=== PATIENT | male | born 1990 | race Caucasian/White ===

== ENCOUNTER → 2021-03-25 09:19 | Outpatient (CLI) | payer MEDICAID, SELFPAY ==
--- NOTE | 2021-03-25 09:30 | RAD_ITS ---
STUDY: X-RAY - ESOPHAGUS (BARIUM SWALLOW) WITH FLUOROSCOPY REASON FOR EXAM: Male, 30 years old. Dysphagia, evaluate FOR ACHALASIA TECHNIQUE: 22 view(s) of the esophagus were obtained following swallowing of barium. FLUOROSCOPY TIME (if supplied): (34 seconds) minutes/seconds COMPARISON: None. FINDINGS: There is no demonstrated esophageal foreign body. There is no demonstrated stricture or mucosal abnormality. There is evidence of dilatation of the entire esophagus with narrowing at the level of the gastroesophageal junction. Findings are in keeping with achalasia. The patient ingested a 12 mm tablet of barium. The tablet is trapped at the gastroesophageal junction. Normal visualized aortic arch and descending thoracic aorta. Normal visualized pulmonary parenchyma. Normal visualized osseous structures of the thorax. RAD/Esophagus Single Contrast IMPRESSION: Findings in keeping with achalasia. The 12 mm tablet of barium is trapped at the gastroesophageal junction. Electronically Signed: Nick Chapin MD at 10:25 EDT , Service support ,
== END ==
DX: R13.10 Dysphagia, unspecified (principal); K22.0 Achalasia of cardia
CPT/HCPCS: 74220

== ENCOUNTER 2021-04-05 14:03 | Day surgery (SDC) | payer MEDICAID, SELFPAY ==
[2021-04-05 14:53] VITALS: BP 119/78; PULSE 71; RESP 16; TEMP 36.8; O2SAT 99
[2021-04-05] MEDS: Lidocaine Jelly 2% 20 ML Syringe (URO-JET) 20 APPLIC (14:53)
== END 2021-04-05 15:22 ==
LOC: EN 14:05
PROVIDERS: Visit Provider Surgery
PROC: F00ZJWZ Instrumental Swallowing and Oral Function Assessment using Swallowing Equipment (ICD-10-PCS; CPT 43235; principal; 2021-04-05 09:25)
DX: R13.10 Dysphagia, unspecified (principal); Z20.828 Contact with and (suspected) exposure to other viral communicable diseases
CPT/HCPCS: 91010; 87426